=== PATIENT | male | born 1955 | race Caucasian/White ===

== ENCOUNTER 2021-01-06 17:45 | Emergency (ER) | payer OTHER, SELFPAY ==
[2021-01-06 17:46] VITALS: BP 121/73; PULSE 72; RESP 14; TEMP 36.8; O2SAT 97; BMI 24.1
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
== END 2021-01-06 18:45 | disposition home or self-care (01) ==
PROVIDERS: Emergency Provider Emergency Medicine; PCP Family Medicine
DX: S39.012A Strain of muscle, fascia and tendon of lower back, initial encounter (principal); V59.9XXA Occupant (driver) (passenger) of pick-up truck or van injured in unspecified traffic accident, initial encounter; Y93.9 Activity, unspecified; Y92.9 Unspecified place or not applicable
CPT/HCPCS: 72110; 99284